=== PATIENT | female | born 1940 | race Caucasian/White ===

== ENCOUNTER → 2017-06-26 | Outpatient (CLI) | payer OTHER | END | disposition home or self-care (01) | LOC: CRE 09:50 | DX: E78.5 Hyperlipidemia, unspecified (principal); I10 Essential (primary) hypertension; I20.9 Angina pectoris, unspecified; I70.0 Atherosclerosis of aorta; Z95.1 Presence of aortocoronary bypass graft | CPT/HCPCS: 93797 ==